=== PATIENT | male | born 1950 | race Caucasian/White ===

== ENCOUNTER → 2023-08-30 10:57 | Outpatient (REF) | payer OTHER, SELFPAY ==
[2023-08-30 12:11] LABS: % Basophils 0.2 % (0-2); % Eosinophils 0.9 % (0-6); % Immature Granulocytes 1.1 % (0-0.5); % Lymphocytes 34.7 % (20.5-51.1); % Monocytes 16.9 % (1.7-9.3); % Neutrophils 46.2 % (42.2-75.2); Absolute Immature Granulocytes 0.1 10^3/uL (0-0.05); Absolute Lymphocytes 1.5 10^3/uL (1.2-3.4); Absolute Monocytes 0.7 10^3/uL (0.1-0.6); Hematocrit 47.3 % (39.0-52.0); Hemoglobin 15.9 g/dL (13.0-18.0); Mean Corp Hgb Conc. 33.6 g/dL (33.0-37.0); Mean Corpuscular Hgb 28.1 pg (27.0-31.0); Mean Corpuscular Volume 83.7 fL (80.0-94.0); Nucleated Red Blood Cells % 0 % (-); Red Blood Cell Count 5.65 10^6/uL (4.70-6.10); Red Cell Dist. Width 14.7 % (11.5-14.5); White Blood Cell Count 4.4 10^3/uL (4.8-10.8)
[2023-08-30 12:54] LABS: ALT (SGPT) 28 U/L (0-50); AST (SGOT) 32 U/L (17-59); Albumin 4.6 g/dl (3.5-5.0); Alkaline Phosphatase 78 U/L (38-126); Blood Urea Nitrogen 13 mg/dl (9-20); Calcium 9.7 mg/dl (8.4-10.2); Carbon Dioxide 24 mmol/L (22-30); Chloride 102 mmol/L (98-107); Glucose 123 mg/dl (70-99); HDL Cholesterol 37 mg/dl; LDL Cholesterol, Calculated 63 mg/dl; Potassium 4.6 mmol/L (3.5-5.1); Sodium 137 mmol/L (135-145); Total Bilirubin 1.4 mg/dl (0.2-1.3); Total Cholesterol 136 mg/dl (50-199); Triglyceride 183 mg/dl (10-149); Very Low Density Lipoprotein 36 mg/dl (0-30)
[2023-08-30 12:55] LABS: eGFR > 60.00
[2023-08-30 13:17] LABS: Mean Platelet Volume 9.3 fL (7.4-10.4); Platelet Count 112 10^3/uL (130-400)
[2023-08-30 13:23] LABS: Glycohemoglobin (HgbA1c) 6.5 % (4.0-5.6)
== END ==
LOC: HWLAB 10:57
PROVIDERS: ATTENDING PHYSICIAN Family Medicine
DX: E11.69 Type 2 diabetes mellitus with other specified complication (principal); Z98.61 Coronary angioplasty status; E78.00 Pure hypercholesterolemia, unspecified; E66.9 Obesity, unspecified
CPT/HCPCS: 36415; 80053; 80061; 83036; 85025

== ENCOUNTER → 2023-11-14 11:23 | Outpatient (REF) | payer OTHER, SELFPAY ==
[2023-11-14 15:29] LABS: % Basophils 0.5 % (0-2); % Eosinophils 0.7 % (0-6); % Immature Granulocytes 0.9 % (0-0.5); % Monocytes 15.1 % (1.7-9.3); % Neutrophils 47.8 % (42.2-75.2); Absolute Lymphocytes 1.5 10^3/uL (1.2-3.4); Absolute Monocytes 0.6 10^3/uL (0.1-0.6); Hematocrit 48.1 % (39.0-52.0); Hemoglobin 16.3 g/dL (13.0-18.0); Mean Corp Hgb Conc. 33.9 g/dL (33.0-37.0); Mean Corpuscular Hgb 28.4 pg (27.0-31.0); Mean Corpuscular Volume 83.9 fL (80.0-94.0); Mean Platelet Volume 10.2 fL (7.4-10.4); Nucleated Red Blood Cells % 0 % (-); Platelet Count 110 10^3/uL (130-400); Red Blood Cell Count 5.73 10^6/uL (4.70-6.10); Red Cell Dist. Width 15.3 % (11.5-14.5); White Blood Cell Count 4.2 10^3/uL (4.8-10.8)
== END ==
LOC: HWLAB 11:23
PROVIDERS: ATTENDING PHYSICIAN Family Medicine
DX: N40.1 Benign prostatic hyperplasia with lower urinary tract symptoms (principal); D69.6 Thrombocytopenia, unspecified
CPT/HCPCS: 36415; 85025; G0103

== ENCOUNTER → 2024-03-08 09:22 | Outpatient (REF) | payer OTHER, SELFPAY ==
[2024-03-08 12:45] LABS: % Basophils 0.3 % (0-2); % Eosinophils 0.3 % (0-6); % Immature Granulocytes 1.3 % (0-0.5); % Lymphocytes 40.1 % (20.5-51.1); % Monocytes 13.8 % (1.7-9.3); % Neutrophils 44.2 % (42.2-75.2); ALT (SGPT) 27 U/L (0-50); AST (SGOT) 28 U/L (17-59); Absolute Immature Granulocytes 0.1 10^3/uL (0-0.05); Absolute Lymphocytes 1.6 10^3/uL (1.2-3.4); Absolute Monocytes 0.6 10^3/uL (0.1-0.6); Absolute Neutrophils 1.8 10^3/uL (1.4-6.5); Albumin 4.7 g/dl (3.5-5.0); Alkaline Phosphatase 67 U/L (38-126); Blood Urea Nitrogen 10 mg/dl (9-20); Calcium 9.5 mg/dl (8.4-10.2); Carbon Dioxide 24 mmol/L (22-30); Chloride 103 mmol/L (98-107); Glucose 142 mg/dl (70-99); HDL Cholesterol 39 mg/dl; Hematocrit 49.8 % (39.0-52.0); Hemoglobin 16.4 g/dL (13.0-18.0); LDL Cholesterol, Calculated 76 mg/dl; Mean Corp Hgb Conc. 32.9 g/dL (33.0-37.0); Mean Corpuscular Hgb 28.9 pg (27.0-31.0); Mean Corpuscular Volume 87.8 fL (80.0-94.0); Mean Platelet Volume 10.4 fL (7.4-10.4); Nucleated Red Blood Cells % 0 % (-); Platelet Count 101 10^3/uL (130-400); Potassium 4.2 mmol/L (3.5-5.1); Red Blood Cell Count 5.67 10^6/uL (4.70-6.10); Red Cell Dist. Width 14.9 % (11.5-14.5); Sodium 138 mmol/L (135-145); Total Bilirubin 1.2 mg/dl (0.2-1.3); Total Cholesterol 144 mg/dl (50-199); Triglyceride 147 mg/dl (10-149); Very Low Density Lipoprotein 29 mg/dl (0-30); eGFR > 60.00
== END ==
LOC: HWLAB 09:22
PROVIDERS: ATTENDING PHYSICIAN Family Medicine
DX: E11.69 Type 2 diabetes mellitus with other specified complication (principal); E78.00 Pure hypercholesterolemia, unspecified; Z00.00 Encounter for general adult medical examination without abnormal findings; D69.6 Thrombocytopenia, unspecified; E66.9 Obesity, unspecified; Z98.61 Coronary angioplasty status
CPT/HCPCS: 36415; 80053; 80061; 83036; 85025

== ENCOUNTER → 2024-07-08 09:19 | Outpatient (REF) | payer OTHER, SELFPAY ==
[2024-07-08 12:40] LABS: Glycohemoglobin (HgbA1c) 5.9 % (4.0-5.6)
[2024-07-08 13:00] LABS: Blood Urea Nitrogen 11 mg/dl (9-20); Calcium 9.6 mg/dl (8.4-10.2); Carbon Dioxide 23 mmol/L (22-30); Chloride 105 mmol/L (98-107); Glucose 141 mg/dl (70-99); Potassium 4.2 mmol/L (3.5-5.1); Sodium 139 mmol/L (135-145); eGFR > 60.00
[2024-07-08 13:51] LABS: Microalbumin, Random Urine 0.9 mg/dl (0.6-1.7)
== END ==
LOC: HWLAB 09:19
PROVIDERS: ATTENDING PHYSICIAN Family Medicine
DX: E11.69 Type 2 diabetes mellitus with other specified complication (principal)
CPT/HCPCS: 36415; 80048; 82043; 82570; 83036

== ENCOUNTER 2024-12-10 09:44 | Inpatient (IN) | payer OTHER, SELFPAY ==
[2024-12-10] VITALS (9 sets, daily range): BP systolic 108–139; BP diastolic 63–98; PULSE 92; O2SAT 94; BMI 33.3; BMI 32.8
[2024-12-10 05:07] LABS: Hematocrit 45.6 % (39.0-52.0); Hemoglobin 15.4 g/dL (13.0-18.0); Mean Corp Hgb Conc. 33.8 g/dL (33.0-37.0); Mean Corpuscular Volume 84.3 fL (80.0-94.0); Nucleated Red Blood Cells % 0 % (-); Platelet Count 83 10^3/uL (130-400); Red Cell Dist. Width 14.8 % (11.5-14.5)
[2024-12-10 05:11] LABS: COVID-19 Antigen Negative (Negative)
[2024-12-10 05:22] LABS: ALT (SGPT) 20 U/L (0-50); AST (SGOT) 21 U/L (17-59); Albumin 4.3 g/dl (3.5-5.0); Alkaline Phosphatase 62 U/L (38-126); Blood Urea Nitrogen 16 mg/dl (9-20); Calcium 9.3 mg/dl (8.4-10.2); Carbon Dioxide 20 mmol/L (22-30); Chloride 108 mmol/L (98-107); Estimated Creatinine Clearance 90 ml/min; Glucose 204 mg/dl (70-99); Potassium 4.4 mmol/L (3.5-5.1); Sodium 138 mmol/L (135-145); Total Protein 6.7 g/dl (6.3-8.2); eGFR > 60.00
[2024-12-10 05:23] LABS: Urine Character Clear (Clear)
[2024-12-10 05:45] LABS: Urine Red Blood Cell 0-2 /HPF (0-2); Urine Squamous Cell 0-2 /LPF (Few); Urine White Cell 0-2 /HPF (0-5)
--- NOTE | 2024-12-10 05:59 | ED.GENMED ---
History of Present Illness
<Dena Wilson PA-C - Last Filed: 12/10/24 11:21>
General
Chief Complaint: Weakness
Source: patient
Exam Limitations: none
Time Seen by Provider: 12/10/24 05:20
History of Present Illness
History of Present Illness:
74yoM with a history of coronary artery disease s/p PCI, hypertension, hyperlipidemia, and type 2 diabetes presenting via EMS for evaluation of generalized weakness. Patient received the COVID-vaccine around 1 PM yesterday afternoon. He started to
experience chills and shivering in the middle of the night. Patient had a fall around 3am this morning in which he slid out of bed. He was unable to get up after the fall and EMS had to be called. He estimates that he was on the ground for
approximately 15 minutes. He denies any LOC or headache. He sustained a mild abrasion to the L upper arm during the fall. He is febrile to 100.4 on arrival. He had chills after receiving his last COVID vaccine 2 years ago. He denies any chest
pain, shortness of breath, vomiting, diarrhea, abdominal pain, rash. No sick contacts or recent travel.
Phy Exam
<Dena Wilson PA-C - Last Filed: 12/10/24 11:21>
General Physical Exam
General Presentation: well appearing and no apparent distress
General Skin: warm and dry
General Habitus: normal and elderly
General Mental: alert
ENT Exam
ENT Exam: normocephalic
Eye Exam
Eye Exam: conjunctiva normal
Cardiovascular Exam
Cardiovascular Exam: regular rate/rhythm
Pulmonary Exam
Pulmonary Exam: lungs clear, no respiratory distress, no rales, no crackles, no rhonchi and no wheezing
Gastrointestinal Exam
Gastrointestinal Exam: non tender, soft and non distended
Neurological Exam
Neurological Exam: alert
[place] Coma Scale
Eye Opening: Spontaneous
Verbal Response: Oriented
Motor Response: Obeys Commands
GCS Total Score: 15
Skin Exam
Skin Exam: normal color, warm/dry and other (Abrasion noted to L upper arm)
Psychiatric Exam
Psychiatric Exam: normal mood/affect
<Leslye Meyers MD - Last Filed: 12/10/24 08:30>
[place] Coma Scale
GCS Total Score: 15
Course
<Dena Wilson PA-C - Last Filed: 12/10/24 11:21>
Orders/Labs/Results
Orders:
Orders
12/10/24 04:30
Electrocardiogram (*1) Urgent
Reason for Study: Other
Other Reason for Exam: Possible Sepsis
Cardiac Monitoring- Treatment ONCE
IV Insert/Care/Rem.- Treatment PRN
O2 Therapy [RESP] Urgent
Titrate/Wean O2 to maintain O2 sat greater than (%): 93
Special Instructions: TO MAINTAIN CONTINUOUS O2 SATS > OR = 93%
Pulse Ox/cont/shift [RESP] Urgent
Quantity: 1
Special Instructions: CONTINUOUS
12/10/24 04:31
EKG- Treatment ONCE
12/10/24 04:43
COVID-19 Antigen Urgent
Source: Nasal Swab
Complete Blood Count/With Diff Urgent
Comprehensive Metabolic Panel Urgent
Glycohemoglobin (HgbA1c) Urgent
Lactic Acid Q4H
Comment: ON ICE, CANCEL 2ND ORDER IF FIRST LACTIC ACID LEVEL <2
Urinalysis Reflex To Culture Urgent
Date Specimen was Collected: 12/10/24
Time Specimen was Collected: 04:31
Urine Microscopic Reflex Cult Urgent
Influenza A+B Rapid Molecular Urgent
LETICIA Source: Nasal Swab
Specimen Description:
12/10/24 04:46
Troponin I Urgent
12/10/24 06:13
CR Chest - 2 Views Urgent
Comment:
Reason For Exam: fever
12/10/24 06:41
Acetaminophen [Tylenol] 1,000 mg PO NOW STA
12/10/24 06:45
0.9% Sodium Chloride 1000 ml [Nss] 1,000 ml IV BOLUS
12/10/24 07:15
0.9% Sodium Chloride 1000 ml [Nss] 1,300 ml IV NOW STA
12/10/24 07:19
Blood Culture Q30M
LETICIA Source: Blood/Venous
Specimen Description:
12/10/24 07:23
CR Femur - Right Min 2 Vw Urgent
Comment:
Reason For Exam: R hip pain, fall
Pelvis, 1 or 2 Views CR [CR Pelvis - 1 Or 2 Views ] Urgent
Comment:
Reason For Exam: R hip pain
12/10/24 07:26
Piperacillin/Tazo 4.5 Gram [Zosyn] 4.5 gram in 100 ml IV NOW
12/10/24 08:10
Add On- LAB Routine
Tests Added?: HbA1C,B12
12/10/24 08:18
CT Head W/o Iv Contrast Urgent
Comment:
Reason For Exam: fall, head strike
12/10/24 08:51
Vancomycin [Vancocin] 2,000 mg 0.9% Sodium Chloride 500 ml [Nss] 500 ml IV NOW
12/10/24 08:59
Lactic Acid Q4H
Comment: ON ICE, CANCEL 2ND ORDER IF FIRST LACTIC ACID LEVEL <2
Blood Culture Q30M
LETICIA Source: Blood/Venous
Specimen Description:
12/10/24 09:10
Admit/Transfer Patient As Directed
Co-Sign Provider:
Level of Care: Inpatient admission
Assign to:: Medical/Surgical
Physician / Group: Hospital medicine
Diagnosis: SIRS
Patient Condition: Fair
Reason for Hospitalization: SIRS
Expected length of stay greater than two midnights?: No
ELOS- Estimated Length of Stay in days: 2
I certify the patient meets the requirements for IP care: Yes
Reason for Overnight Stay: Standard of Care
12/10/24 09:11
PRN Pain Medication Management As Directed
May give lesser potent ordered pain med per pt: Yes
preference::
Protocol:: Medication orders for pain may be administered in a
manner that supports deferring to patient preference
when the pt is:
- Requesting an ordered lesser potent pain medication.
Least to most potent pain medications are defined
as: acetaminophen < NSAID < tramadol < opioids
(morphine, oxycodone, hydromorphone).
- Requesting a lesser dose of the same medication IF
ORDERED.
- Requesting a less intrusive route of administration
if both routes are prescribed by the provider (PO <
IV).
12/10/24 09:16
Code Status As Directed
Resuscitation Status: Do not resuscitate
Reached after discussion with pt or family/Healthcare POA: Yes
Abnormal Lab Results
12/10/24
04:43
WBC 4.3 L 10^3/uL
(4.8-10.8)
RDW 14.8 H %
(11.5-14.5)
Plt Count 83 L 10^3/uL
(130-400)
Abs Immat Gran (auto) 0.1 H 10^3/uL
(0-0.05)
Absolute Lymphs (auto) 0.3 L 10^3/uL
(1.2-3.4)
Immature Gran % 1.9 H %
(0-0.5)
Neutrophils % 79.8 H %
(42.2-75.2)
Lymphocytes % 6.3 L %
(20.5-51.1)
Monocytes % 11.8 H %
(1.7-9.3)
Chloride 108 H mmol/L
(98-107)
Carbon Dioxide 20 L mmol/L
(22-30)
Glucose 204 H mg/dl
(70-99)
Hemoglobin A1c 5.8 H %
(4.0-5.6)
Lactic Acid 3.2 H mmol/L
(0.7-2.0)
Total Bilirubin 1.6 H mg/dl
(0.2-1.3)
Urine Ketones 1+ A
(Negative)
Ur Occult Blood Reflex 1+ A
(Negative)
Urine Glucose 4+ A
(Negative)
12/10/24 04:43
12/10/24 04:43
Vital Signs
Initial and Last Documented VS:
Initial Vital Signs
Temp Pulse Resp BP Pulse Ox
100.4 F H 104 20 135/77 92
12/10/24 04:24 12/10/24 04:24 12/10/24 04:24 12/10/24 04:24 12/10/24 04:24
Last Documented Vital Signs
Temp Pulse Resp BP Pulse Ox
99.5 F 90 14 121/78 92
12/10/24 06:50 12/10/24 09:00 12/10/24 09:00 12/10/24 07:00 12/10/24 09:00
<Leslye Meyers MD - Last Filed: 12/10/24 08:30>
Orders/Labs/Results
Orders:
Orders
12/10/24 04:30
Electrocardiogram (*1) Urgent
Reason for Study: Other
Other Reason for Exam: Possible Sepsis
Cardiac Monitoring- Treatment ONCE
IV Insert/Care/Rem.- Treatment PRN
O2 Therapy [RESP] Urgent
Titrate/Wean O2 to maintain O2 sat greater than (%): 93
Special Instructions: TO MAINTAIN CONTINUOUS O2 SATS > OR = 93%
Pulse Ox/cont/shift [RESP] Urgent
Quantity: 1
Special Instructions: CONTINUOUS
12/10/24 04:31
EKG- Treatment ONCE
12/10/24 04:43
COVID-19 Antigen Urgent
Source: Nasal Swab
Complete Blood Count/With Diff Urgent
Comprehensive Metabolic Panel Urgent
Glycohemoglobin (HgbA1c) Urgent
Lactic Acid Q4H
Comment: ON ICE, CANCEL 2ND ORDER IF FIRST LACTIC ACID LEVEL <2
Urinalysis Reflex To Culture Urgent
Date Specimen was Collected: 12/10/24
Time Specimen was Collected: 04:31
Urine Microscopic Reflex Cult Urgent
Influenza A+B Rapid Molecular Urgent
LETICIA Source: Nasal Swab
Specimen Description:
12/10/24 04:46
Troponin I Urgent
12/10/24 06:13
CR Chest - 2 Views Urgent
Comment:
Reason For Exam: fever
12/10/24 06:41
Acetaminophen [Tylenol] 1,000 mg PO NOW STA
12/10/24 06:45
0.9% Sodium Chloride 1000 ml [Nss] 1,000 ml IV BOLUS
12/10/24 07:15
0.9% Sodium Chloride 1000 ml [Nss] 1,300 ml IV NOW STA
12/10/24 07:19
Blood Culture Q30M
LETICIA Source: Blood/Venous
Specimen Description:
12/10/24 07:23
CR Femur - Right Min 2 Vw Urgent
Comment:
Reason For Exam: R hip pain, fall
Pelvis, 1 or 2 Views CR [CR Pelvis - 1 Or 2 Views ] Urgent
Comment:
Reason For Exam: R hip pain
12/10/24 07:26
Piperacillin/Tazo 4.5 Gram [Zosyn] 4.5 gram in 100 ml IV NOW
12/10/24 08:10
Add On- LAB Routine
Tests Added?: HbA1C,B12
12/10/24 08:18
CT Head W/o Iv Contrast Urgent
Comment:
Reason For Exam: fall, head strike
12/10/24 08:51
Vancomycin [Vancocin] 2,000 mg 0.9% Sodium Chloride 500 ml [Nss] 500 ml IV NOW
12/10/24 08:59
Lactic Acid Q4H
Comment: ON ICE, CANCEL 2ND ORDER IF FIRST LACTIC ACID LEVEL <2
Blood Culture Q30M
LETICIA Source: Blood/Venous
Specimen Description:
12/10/24 09:10
Admit/Transfer Patient As Directed
Co-Sign Provider:
Level of Care: Inpatient admission
Assign to:: Medical/Surgical
Physician / Group: Hospital medicine
Diagnosis: SIRS
Patient Condition: Fair
Reason for Hospitalization: SIRS
Expected length of stay greater than two midnights?: No
ELOS- Estimated Length of Stay in days: 2
I certify the patient meets the requirements for IP care: Yes
Reason for Overnight Stay: Standard of Care
12/10/24 09:11
PRN Pain Medication Management As Directed
May give lesser potent ordered pain med per pt: Yes
preference::
Protocol:: Medication orders for pain may be administered in a
manner that supports deferring to patient preference
when the pt is:
- Requesting an ordered lesser potent pain medication.
Least to most potent pain medications are defined
as: acetaminophen < NSAID < tramadol < opioids
(morphine, oxycodone, hydromorphone).
- Requesting a lesser dose of the same medication IF
ORDERED.
- Requesting a less intrusive route of administration
if both routes are prescribed by the provider (PO <
IV).
12/10/24 09:16
Code Status As Directed
Resuscitation Status: Do not resuscitate
Reached after discussion with pt or family/Healthcare POA: Yes
Abnormal Lab Results
12/10/24
04:43
WBC 4.3 L 10^3/uL
(4.8-10.8)
RDW 14.8 H %
(11.5-14.5)
Plt Count 83 L 10^3/uL
(130-400)
Abs Immat Gran (auto) 0.1 H 10^3/uL
(0-0.05)
Absolute Lymphs (auto) 0.3 L 10^3/uL
(1.2-3.4)
Immature Gran % 1.9 H %
(0-0.5)
Neutrophils % 79.8 H %
(42.2-75.2)
Lymphocytes % 6.3 L %
(20.5-51.1)
Monocytes % 11.8 H %
(1.7-9.3)
Chloride 108 H mmol/L
(98-107)
Carbon Dioxide 20 L mmol/L
(22-30)
Glucose 204 H mg/dl
(70-99)
Hemoglobin A1c 5.8 H %
(4.0-5.6)
Lactic Acid 3.2 H mmol/L
(0.7-2.0)
Total Bilirubin 1.6 H mg/dl
(0.2-1.3)
Urine Ketones 1+ A
(Negative)
Ur Occult Blood Reflex 1+ A
(Negative)
Urine Glucose 4+ A
(Negative)
12/10/24 04:43
12/10/24 04:43
Vital Signs
Initial and Last Documented VS:
Initial Vital Signs
Temp Pulse Resp BP Pulse Ox
100.4 F H 104 20 135/77 92
12/10/24 04:24 12/10/24 04:24 12/10/24 04:24 12/10/24 04:24 12/10/24 04:24
Last Documented Vital Signs
Temp Pulse Resp BP Pulse Ox
99.5 F 90 14 121/78 92
12/10/24 06:50 12/10/24 09:00 12/10/24 09:00 12/10/24 07:00 12/10/24 09:00
<Dena Wilson PA-C - Last Filed: 12/10/24 11:21>
MDM/Problems Addressed
Differential Diagnosis Includes:
74yoM here with weakness and chills that started overnight. Received a COVID vaccine yesterday afternoon. Had a fall out of bed and was unable to stand prompting EMS call. Patient is febrile to 100.4 on arrival. He is well appearing on exam and in
good spirits. Differential diagnosis includes but is not limited to: side effect of COVID vaccine, pneumonia, UTI, sepsis, viral illness, dehydration
Initial ED plan: Workup initiated by nursing staff. COVID/flu testing negative. UA bland without signs of infection. Lactate is elevated at 3.2. White count is 4.3 which is consistent with prior labs. EKG shows sinus tachycardia with
nonspecific ST changes. Will check chest x-ray, troponin, and blood cultures. Tylenol and IV fluid bolus for symptoms.
<Dnea Wilson PA-C - Last Filed: 12/10/24 11:21>
*Pulse Oximetry
SaO2: 94
Oxygen Mode of Delivery: Room air
Patient hypoxic: no
*EKG
Interpreted by ED Provider?: Yes
EKG Intrepretation Date: 12/10/24
Heart Rate: 104
Rate: tachycardiac
Rhythm: sinus
Isabel: left axis deviation
Interval: normal interval
QRS Pattern: normal QRS
Ischemia: non-specific ST changes
*Critical Care Note
Total Time (30-74mins, 75-104mins- exclusive of procedures): Not Applicable
<Dena Wilson PA-C - Last Filed: 12/10/24 11:21>
Update Note
Update Note:
Chest x-ray is clear. Upon reassessment, patient is now complaining of right hip pain. Pelvis/femur x-rays added as well as head CT which are negative for traumatic injuries. No source of infection identified although he is meeting SIRS criteria.
This all may be a reaction from the COVID-vaccine yesterday but will cover with broad-spectrum antibiotics pending culture results. IV vancomycin and Zosyn ordered. Patient admitted for further management.
ED Attending Note
<Dena Wilson PA-C - Last Filed: 12/10/24 11:21>
-
Portions of this chart may have been created with voice recognition software.� Occasional wrong word or��sound alike� substitutions may have occurred due to the inherent limitations of voice recognition software.
<Leslye Meyers MD - Last Filed: 12/10/24 08:30>
ED Attending Note
Patient seen and examined by attending physician: Yes
I performed the substantive portion of visit, reviewed & personally made and approve the management plan that is documented in note by myself or LAURA.: Yes
ED Attending Note:
74-year-old male who received the COVID-vaccine yesterday, very early this morning excellently rolled out of bed and unable to get up. Notes that he feels globally weak without focal weakness. He denies headache, photophobia, neck stiffness or
pain, chest pain, shortness of breath. He does have mild right hip discomfort since the fall. On exam, patient awake alert pleasant, no neck tenderness to palpation, heart regular rate and rhythm, lungs CTA, abdomen soft and nontender. Full range
of motion of right hip without associated deformity or tenderness to palpation, neurovascularly intact. Patient does fit SIRS criteria however no focal source identified, UA clear, chest x-ray clear, no meningismus. Patient will be admitted,
sepsis fluids, consideration for empiric antibiotics versus observe off antibiotics.
Discharge Plan
Departure
Patient Disposition: Admit
Date of Disposition: 12/10/24
Time of Disposition: 07:27
Presentation/result/management discussed w/ accepting MD/DO: Hospitalist
Discharge Problem:
SIRS (systemic inflammatory response syndrome), Accidental fall from bed, Ambulatory dysfunction
Interventions
Interventions:
*Risk Screen - Suicide Last Done: 12/10/24 04:38
*General Assessment Last Done: 12/10/24 04:38
*Neglect/Abuse Screening Last Done: 12/10/24 04:38
*ED- Fall Risk Assessment Last Done: 12/10/24 04:38
*ED COVID-19 Vaccine History Last Done: 12/10/24 04:38
*Nursing Disposition Last Done: 12/10/24 11:13
ED- Cardiac Assessment Last Done: 12/10/24 04:52
ED- Neurological Assessment Last Done: 12/10/24 04:52
ED- Pulmonary Assessment Last Done: 12/10/24 04:52
Discharge Date and Time
Discharge Date/Time: 12/10/24 11:14
[2024-12-10] MEDS: NSS 1000 IV ×2 (06:30→12:05)
[2024-12-10] MEDS: TYLENOL 1000 MG PO (06:44)
[2024-12-10 07:42] LABS: Troponin I < 0.012 ng/ml
[2024-12-10] MEDS: ZOSYN 100 IV (08:21)
[2024-12-10] MEDS: NSS 1300 ML IV (08:21)
--- NOTE | 2024-12-10 08:35 | HPS.HSE ---
Addendum entered and electronically signed by Keenan Edward MD 12/10/24 10:44:
Seen and examined the patient with the resident. Plan formulated together. Agree with the plan. See changes in my documentation
74-year-old with weakness. He received code booster vaccine 1 PM yesterday afternoon had some chills and shivering. He also had a fall around 3:00 this morning when he slid out of bed and was unable to get up and called EMS. Had a fever 100.4 in
the ER. Symptoms symptoms of chills after receiving cortisone vaccine 2 years ago.
Patient denies any rashes, abdominal pain nausea vomiting or diarrhea, dysuria, headache.
He has had some increasing pain in the right hip area
EKG-sinus tachycardia nonspecific T wave abnormality
Chest x-ray reviewed by me-No Pneumonia
X-ray of the pelvis-no acute changes. Mild degenerative changes of both hips
Head CT-no acute abnormality
On examination awake alert and oriented
Cardiovascular system S1-S2 appreciated
Chest clear to auscultation
Abdomen soft and nontender
Lower extremity no rashes or redness, no edema
No neck stiffness
# SIRS
Fever and chills, Tachycardia
Possibly secondary to the vaccine effect
But workup for other infections
Chest x-ray- NO acute changes of pneumonia
Urine analysis--not indicative of infection
LFTs stable except for mildly elevated bilirubin
Blood cultures drawn
Hold off on further antibiotics
# Pain in the right hip area-no fracture. PT OT. If pain persists will get a CT
# Mild lactic acidosis-follow with IV fluids
# Chronic bicytopenia-needs outpatient hematology evaluation
# DM-check hemoglobin A1c. Seems to be on Jardiance as outpatient, continue with Holli in house, Accu-Cheks and sliding scale coverage
# Hyperlipidemia-continue statin, Zetia
# Hypertension-continue doxazosin, ramipril
# DVT prophylaxis-Lovenox
# CODE STATUS-patient wants to be DNR.
Discussed with at bedside
Part of this note was created using voice recognition system. Occasional wrong word or��sound alike� substitutions may have inadvertently occurred due to the inherent limitations of voice recognition software. If noted kindly bring it to my
attention for correction.
Original Note:
Family Physician
-
Family Physician: Mahsa Herzog
Chief Complaint
-
Fatigue, chills, accidental fall.
History of Present Illness
74-year-old male with PMHx significant for CAD s/p PCI, hypertension, hyperlipidemia, type 2 diabetes mellitus (?) presents to the ER via EMS for evaluation of generalized weakness and fatigue. His baseline functional status was completely
independent, was able to walk a mile without shortness of breath and was able to do push-ups until yesterday afternoon. He received COVID-19 booster in the afternoon yesterday around 1 pm, he started experiencing weakness (unable to do push-ups in
the evening), and started experiencing chills by 8:30 PM. In the night around 3 AM, when his asked to roll a bit patient rolled out of bed and was stuck in the space between the cabinet and the bed. He was unable to get himself up, and EMS
was called for help (total duration on floor-for 15 minutes). Upon arrival to the ER, he was found to be febrile, tachycardic, tachypneic with normal oxygen saturations. He denies having headaches, neck pain, nausea, vomiting, blurring of vision,
abdominal pain, chest pain, dyspnea at rest or on exertion, dysuria, change in bowel habits or blood in the stool. He had no history of tick bites, not been in ch lately, no sick contacts, and has not traveled outside of [place].
He also reports to have right hip pain that worsened after the fall. His hip x-ray for now looks within normal limits.
Reports to have a similar episode of chills and generalized weakness after COVID-19 vaccine about 2 years ago.
In the ER he received 2 L of NS, vancomycin and Zosyn along with extra-strength Tylenol.
Medical History
Past Medical History
Past Medical History: Reports CAD, HTN, Hypercholesterolemia and NIDDM
Additional Past Medical History:
BPH with LUTS.
Past Surgical History: Reports None
Additional Past Surgical History:
Resection of multiple tubular adenomas.
Social History
Tobacco: Non-smoker
Alcohol: Occasional
Drug: None
Personal:
Living: With Family
Employment: Retired
Family History
Family History: Not pertinent
Allergies / Home Medications
Allergies reflects when Allergies were last updated in [facility].
Home Medications with original date entered in [facility]
Allergy/Medication List:
Allergies
Allergy/AdvReac Type Severity Reaction Status Date / Time
No Known Allergies Allergy Unverified 12/10/24 06:37
Home Medications
atorvastatin 20 mg tablet 20 mg PO HS 12/10/24
doxazosin 1 mg tablet 1 mg PO BID 12/10/24
empagliflozin 25 mg tablet (Jardiance) 25 mg PO DAILY 12/10/24
ezetimibe 10 mg tablet 10 mg PO DAILY 12/10/24
ramipril 10 mg tablet 10 mg PO BID 12/10/24
Aspirin 81 mg tablet 1 tablet p.o. daily
Review of Systems
-
History Source: Patient
Constitutional: Reports Fever, Fatigue and Chills
EENT: Reports No Symptoms
Respiratory: Reports No Symptoms
Cardiac: Reports No Symptoms
Abdomen/GI: Reports No Symptoms
: Reports No Symptoms
Musculoskeletal: Reports No Symptoms
Skin: Reports No Symptoms
Neurological: Reports Weakness (Generalized)
Endocrine: Reports No Symptoms
Hematologic/Lymphatic: Reports Bruising (Attributed to aspirin (for last 2 years per patient))
Psych: Reports No Symptoms
Physical Exam
Vital Signs
Vital Signs
Temp Pulse Resp BP Pulse Ox
99.5 F 97 17 128/79 94
12/10/24 06:50 12/10/24 06:00 12/10/24 06:00 12/10/24 06:00 12/10/24 06:00
Physical Exam
General: No Apparent Distress, Comfortable and Obese
HEENT: Anicteric, Moist mucous membranes and [place] Conjunctivae
Respiratory: Clear; No Wheezes, Rales, Rhonchi, Crackles or Accessory Resp Muscle Use
Cardiac: S1/S2 and Regular Rhythm; No Murmur, Rub or Gallop
GI: Soft, Non Tender, Non Distended and Normal Bowel Sounds
Genito-urinary: Deferred by me
Musculoskeletal: No Cyanosis and No Edema
Skin: Warm and Other (bruises)
Neuro: AO x 3, No Motor Deficits, DTR's Intact & Symmetrical and Tremors (in hands)
Psych: Calm
Laboratory Results
-
12/10/24 04:43
12/10/24 04:43
Laboratory Results
Lactic Acid 3.2 mmol/L (0.7-2.0) H 12/10/24 04:43
Total Bilirubin 1.6 mg/dl (0.2-1.3) H 12/10/24 04:43
AST 21 U/L (17-59) 12/10/24 04:43
ALT 20 U/L (0-50) 12/10/24 04:43
Alkaline Phosphatase 62 U/L (38-126) 12/10/24 04:43
Troponin I < 0.012 ng/ml 12/10/24 04:46
Data Reviewed
-
Diagnostic Radiology: Image Personally Visualized and interpreted, Report Reviewed by me, Discussed with Physician and Discussed with Patient
Medical Tests (Nuc Med, Echo, EKG etc): Image Personally Visualized and interpreted, Report Reviewed by me and Discussed with Patient
Lab Data: Labs Reviewed by me, Discussed with Physician and Discussed with Patient
Impression/Plan
-
IMPRESSION: 74-year-old male with PMHx significant for CAD s/p PCI, HTN, HLD, BPH with LUTS and type 2 diabetes is admitted to the hospital for a diagnosis and management of systemic inflammatory response syndrome.
PLAN:
SIRS criteria met, less likely sepsis.
Likely secondary to COVID-vaccine, versus sepsis.
Fever-100.4, tachycardia and tachypnea upon admission.
No leukocytosis, elevated lactate levels.
Urine analysis-no evidence for UTI, chest x-ray-no evidence for pneumonia.
Blood cultures x 2 pending.
Continue IV fluids, and hold off on antibiotics for now.
Continue Tylenol for fever/pain.
Metabolic acidosis-
Lactic acidosis anion gap-10.
Unclear etiology at this time.
Continue to monitor electrolytes.
Leukopenia, thrombocytopenia-
Chronic, present at least for 1 year.
Left shift and leukopenia is new.
Essential hypertension-
Continue ramipril 10 mg twice daily.
CAD s/p PCI-
Continue aspirin.
Hyperlipidemia-
Continue Lipitor and ezetimibe.
Type 2 diabetes mellitus-
Elevated blood sugars in the a.m. today, at 205.
On empagliflozin at home, obtain HbA1c in the a.m.
Carb controlled diabetic diet.
Accu-Cheks.
Hip pain, generalized fatigue-
Obtain PT, OT consult.
Right hip x-ray no evidence for fracture.
If hip pain worsens, will obtain a CT in the a.m. tomorrow.
DVT prophylaxis-
Lovenox 40 twice daily
CODE STATUS-
DNR.
[2024-12-10] MEDS: VANCOCIN 540 MG IV (09:26)
[2024-12-10 09:59] LABS: Glycohemoglobin (HgbA1c) 5.8 % (4.0-5.6)
--- NOTE | 2024-12-10 10:10 | CM ---
CM reviewed chart and met with pt bedside in ED. Lives with his , 1 story home, 2 [address].
Independent in ADLs, personal care and ambulation at baseline. Has RW but does not use it.
Confirms prescription coverage.
No hx VN or SNf
PCP: Mahsa Herzog
Pharmacy: [facility]
Anticipate discharge home, CM will continue to follow for any discharge planning needs.
--- NOTE | 2024-12-10 11:30 | TRANSFER ---
pt arrives from ER requiring pipe puller into hospital bed. pt aaox3 with stable vitals. spouse present. admission and assessment being completed. pt with no pressing issues at the moment. plan of care continues to be followed.
[2024-12-10] MEDS: ZETIA 10 MG PO (12:05)
[2024-12-10] MEDS: ASPIR LOW (ENTERIC COATED) 81 MG PO (12:05)
[2024-12-10] MEDS: FARXIGA 10 MG PO (12:05)
[2024-12-10 12:15] LABS: Glucose - Point of Care 96 mg/dl (70-99)
[2024-12-10 16:40] LABS: Glucose - Point of Care 137 mg/dl (70-99)
[2024-12-10] MEDS: LOVENOX 40 MG SC (17:00)
[2024-12-10] MEDS: CARDURA 1 MG PO (20:13)
[2024-12-10] MEDS: ALTACE 10 MG PO (20:13)
[2024-12-10] MEDS: REFRESH EYE DROPS (PF) 1 DROPS BOTH EYES (21:29)
[2024-12-10] MEDS: LIPITOR 20 MG PO (21:29)
[2024-12-10 21:37] LABS: Glucose - Point of Care 107 mg/dl (70-99)
[2024-12-11] MEDS: NSS 1000 IV ×2 (00:54→13:52)
[2024-12-11 06:00] VITALS: BMI 33.3
[2024-12-11 07:20] VITALS: BP 132/79
[2024-12-11 07:53] LABS: Glucose - Point of Care 117 mg/dl (70-99)
[2024-12-11] MEDS: ALTACE 10 MG PO ×2 (08:49→20:32)
[2024-12-11] MEDS: ZETIA 10 MG PO (08:49)
[2024-12-11] MEDS: CARDURA 1 MG PO ×2 (08:50→20:33)
[2024-12-11] MEDS: ASPIR LOW (ENTERIC COATED) 81 MG PO (08:51)
[2024-12-11] MEDS: FARXIGA 10 MG PO (08:51)
[2024-12-11] MEDS: REFRESH EYE DROPS (PF) 1 DROPS BOTH EYES ×2 (08:51→20:32)
[2024-12-11 09:05] LABS: Hematocrit 39.8 % (39.0-52.0); Hemoglobin 13.4 g/dL (13.0-18.0); Mean Corp Hgb Conc. 33.7 g/dL (33.0-37.0); Mean Corpuscular Volume 84.0 fL (80.0-94.0); Platelet Count 68 10^3/uL (130-400); Red Cell Dist. Width 15.0 % (11.5-14.5)
[2024-12-11 09:41] VITALS: BP 94/46; PULSE 93
[2024-12-11 10:18] LABS: ALT (SGPT) 21 U/L (0-50); AST (SGOT) 27 U/L (17-59); Albumin 3.6 g/dl (3.5-5.0); Alkaline Phosphatase 51 U/L (38-126); Blood Urea Nitrogen 12 mg/dl (9-20); Calcium 8.8 mg/dl (8.4-10.2); Carbon Dioxide 22 mmol/L (22-30); Chloride 109 mmol/L (98-107); Estimated Creatinine Clearance 101 ml/min; Glucose 89 mg/dl (70-99); Potassium 3.6 mmol/L (3.5-5.1); Sodium 138 mmol/L (135-145); Total Protein 5.9 g/dl (6.3-8.2); eGFR > 60.00
--- NOTE | 2024-12-11 11:33 | W.PN.HOSP.TC ---
Today's Communication/Plan
-
stop IVF
CBC in am
Assessment / Plan
Assessment / Plan
74-year-old with weakness. He received code booster vaccine 1 PM yesterday afternoon had some chills and shivering. He also had a fall around 3:00 this morning when he slid out of bed and was unable to get up and called EMS. Had a fever 100.4 in
the ER. Symptoms symptoms of chills after receiving cortisone vaccine 2 years ago.
Patient denies any rashes, abdominal pain nausea vomiting or diarrhea, dysuria, headache.
He has had some increasing pain in the right hip area
EKG-sinus tachycardia nonspecific T wave abnormality
Chest x-ray reviewed by me-No Pneumonia
X-ray of the pelvis-no acute changes. Mild degenerative changes of both hips
Head CT-no acute abnormality
On examination awake alert and oriented
Cardiovascular system S1-S2 appreciated
Chest clear to auscultation
Abdomen soft and nontender
Lower extremity no rashes or redness, no edema
No neck stiffness
# SIRS
Fever and chills, Tachycardia
Possibly secondary to the vaccine effect
But workup for other infections
Chest x-ray- NO acute changes of pneumonia
Urine analysis--not indicative of infection
LFTs stable except for mildly elevated bilirubin
Blood cultures drawn
Hold off on further antibiotics
# Pain in the right hip area-no fracture. PT OT. If pain persists will get a CT. Patient states that after 7 steps it gets better and no pain
# Mild lactic acidosis-resolved
# Chronic bicytopenia-needs outpatient hematology evaluation
# DM-hemoglobin A1c 5.8- seems to be on Jardiance as outpatient, continue with Farxiga in house, Accu-Cheks and sliding scale coverage
# Hyperlipidemia-continue statin, Zetia
# Hypertension-continue doxazosin, ramipril
# Suspected cognitive dysfunction per evaluation by Occupational Therapy. Formal evaluation as outpatient. Discussed with daughter at bedside
# DVT prophylaxis-Lovenox
# CODE STATUS-patient wants to be DNR.
Discussed with and daughter at bedside
Discussed with case management
OT/PT recommending SNF
Anticipated Discharge: Within 24 hours
Subjective/Interval History
-
Date of Service: December 11, 2024
Objective Data
-
Labs:
Laboratory Results
12/11/24
07:29
WBC 2.9 L
Hgb 13.4
Hct 39.8
Plt Count 68 L
Sodium 138
Potassium 3.6
Chloride 109 H
Carbon Dioxide 22
BUN 12
Creatinine 0.8
Glucose 89
Calcium 8.8
Total Bilirubin 2.0 H
AST 27
ALT 21
Alkaline Phosphatase 51
Vital Signs:
Vital Signs
Temp Pulse Resp BP Pulse Ox
98.5 F 73 20 132/79 95
12/11/24 07:20 12/11/24 07:20 12/11/24 07:20 12/11/24 07:20 12/11/24 07:20
I&O
12/10/24 12/11/24 12/12/24
06:59 06:59 06:59
Intake Total 2029
Output Total 1075 / 1075
Balance 955 / 955
--- NOTE | 2024-12-11 12:25 | CM ---
Chart reviewed. Therapy rec SNF at d/c. Per hospitalist, steven d/c tomorrow
Spoke w/ patient, spouse and daughter bedside. Daughter asked about [facility], CM shared that therapy did not recommended acute rehab and patient doesn't have an acute diagnosis. Daughter understood this, shared [facility] would be preferred as well
as [facility]. Medicare SNF list provided in case additional facilities need to be explored.
Referrals completed in [facility]
Patient will require prior auth
Plan: SNF
[2024-12-11 12:36] LABS: Glucose - Point of Care 102 mg/dl (70-99)
[2024-12-11 15:15] VITALS: BP 103/61
[2024-12-11 17:01] LABS: Glucose - Point of Care 126 mg/dl (70-99)
[2024-12-11] MEDS: LOVENOX 40 MG SC (18:51)
[2024-12-11] MEDS: LIPITOR 20 MG PO (21:03)
[2024-12-11 21:04] LABS: Glucose - Point of Care 126 mg/dl (70-99)
[2024-12-11 23:00] VITALS: BP 132/71
[2024-12-12 05:30] VITALS: BMI 32.8
[2024-12-12 07:34] LABS: Hematocrit 39.8 % (39.0-52.0); Hemoglobin 13.7 g/dL (13.0-18.0); Mean Corp Hgb Conc. 34.4 g/dL (33.0-37.0); Mean Corpuscular Volume 84.5 fL (80.0-94.0); Platelet Count 64 10^3/uL (130-400); Red Cell Dist. Width 14.9 % (11.5-14.5)
[2024-12-12 07:53] VITALS: BP 150/80
[2024-12-12 08:04] LABS: Glucose - Point of Care 108 mg/dl (70-99)
[2024-12-12 08:04] LABS: Absolute Neutrophils -Man Diff 1.5 10^3/uL (1.4-6.5); Platelets Checked Yes
[2024-12-12 08:05] LABS: Normal RBC Morphology Yes; Total Cells Counted 100
[2024-12-12 09:27] VITALS: BP 151/86; PULSE 70
[2024-12-12] MEDS: FARXIGA 10 MG PO (10:16)
[2024-12-12] MEDS: ALTACE 10 MG PO ×2 (10:16→20:20)
[2024-12-12] MEDS: CARDURA 1 MG PO ×2 (10:16→20:20)
[2024-12-12] MEDS: ZETIA 10 MG PO (10:18)
[2024-12-12] MEDS: ASPIR LOW (ENTERIC COATED) 81 MG PO (10:18)
[2024-12-12] MEDS: REFRESH EYE DROPS (PF) 1 DROPS BOTH EYES ×2 (10:18→20:20)
--- NOTE | 2024-12-12 10:28 | CON.ONC ---
Consultation
-
Date Consultation Requested: 12/12/24
Date Consultation Performed: 12/12/24
Requesting Provider: Dr. Keenan Edward
Performing Provider: Dr. Jorge Jensen
Reason for Consultation: leukopenia and thrombocytopenia
Impression
Impression
SIRS
leukopenia, thrombocytopenia -Leukopenia worsening since October 2024, thrombocytopenia worsening since August 2023. CBC differential with leukopenia, normal ANC
Plan
Plan
follow cultures
No objection to antiplatelet or anticoagulation in the absence of bleeding with platelet count >50,000
check DIC panel, B12, folate, SPEP, FLC, MIRNA, lupus anticoagulant
check ab US
OP follow up will be arranged upon dishcarge to consider further evaluation with bone marrow biopsy
Patient History
History of Present Illness
74yo M who presented after a mechanical fall at home. He rolled out of bed onto the floor and could not get himself back up requiring him to call EMS. He received his COVID booster 12/09/2024 and since has developed chills, low grade temp with Tmax
100.4F, general weakness, and left deltoid soreness at the site of injection. He did not hit his head and was lying on the floor for approximately 15min. He has chronic right hip pain that is slightly worse after his fall. His CXR showed bibasilar
opacities, most consistent with atelectasis/scarring. Moderate elevation of the right hemidiaphragm. Right femur and pelvic xrays showed no acute radiographic abnormalities appreciated. Mild degenerative changes of both hips. His CT head showed no
acute intracranial abnormality. His WBC on admission was 4.3, ANC 3.4, ALC 300, Hgb 15.4, platelet count 83,000, Tbili 1.6 with normal AST/ALT/Alk phos, BuN/creatine 16/0.9. Bcx are NTD. On admission he received IVF, a dose of IV Vanco and a dose of
Zosyn.
Clinically, he denies SOB at rest, chest pain, palpitations, n/v/d/c or abdominal pain. Last colonoscopy 2018 with benign polyps. He denies any unintentional weight loss, changes in appetite, or changes in bowel patterns. He denies any prior
hematology work up or evaluation.
Afebrile, no hypoxia or hypotension
Past-Medical/Surgical History
PMH CAD, HTN, HLD, DM2, BPH
PSH PCI, hemorrhoidectomy
Social non smoker, deneis significant ETOH, denies recreational drugs. Lives with , retired.
Family: denies malignancy
Patient Medication
�Medication �Instructions �Recorded �Confirmed �Last Taken �Type
Refresh Tears 1 drp BOTH EYES BID Eye Condition 12/10/24 12/11/24 12/09/24 20:00 History
aspirin 81 mg tablet 81 mg PO DAILY Blood Clot 12/10/24 12/10/24 12/09/24 History
Prevention/Tx
atorvastatin 20 mg tablet 20 mg PO HS High Cholesterol 12/10/24 12/10/24 12/09/24 History
doxazosin 1 mg tablet 1 mg PO BID Urinary Issue 12/10/24 12/10/24 12/09/24 History
empagliflozin 25 mg tablet 25 mg PO DAILY Diabetes 12/10/24 12/10/24 12/09/24 History
(Jardiance)
ezetimibe 10 mg tablet 10 mg PO DAILY High Cholesterol 12/10/24 12/10/24 12/09/24 History
multivitamin 1 tab PO DAILY Supplement 12/10/24 12/10/24 12/09/24 History
omega 9-pjj-qhj-fish oil 60 mg-90 1 cap PO DAILY Supplement 12/10/24 12/10/24 12/09/24 History
mg-500 mg capsule (Fish Oil)
ramipril 10 mg capsule 10 mg PO BID Blood Pressure 12/10/24 12/10/24 12/09/24 History
Active Medications
Generic Name Dose Route Start Last Admin
Trade Name Freq PRN Reason Stop Dose Admin
Artificial Tears 1 drops 12/10/24 22:00 12/12/24 10:18
Artificial Tears Pf (Refresh) 10 Drop Droperette BOTH EYES 01/07/25 21:59 1 drops
BID CHRIS Administration
Aspirin 81 mg 12/10/24 12:00 12/12/24 10:18
Aspirin 81 Mg (Enteric Coated) Tablet PO 01/07/25 11:59 81 mg
DAILY CHRIS Administration
Atorvastatin Calcium 20 mg 12/10/24 22:00 12/11/24 21:03
Atorvastatin (Lipitor) 20 Mg Tablet PO 01/07/25 21:59 20 mg
HS CHRIS Administration
Dapagliflozin 10 mg 12/10/24 12:00 12/12/24 10:16
Dapagliflozin (Farxiga) 10 Mg Tablet PO 01/07/25 11:59 10 mg
DAILY CHRIS Administration
Dextrose 12.5 grams 12/10/24 11:19
Dextrose 50% (0.5 Grams/Ml) 50 Ml Syringe IV 01/07/25 11:18
[id number] PRN
hypoglycemia
Protocol
Doxazosin Mesylate 1 mg 12/10/24 20:00 12/12/24 10:16
Doxazosin 1 Mg Tablet PO 01/07/25 19:59 1 mg
BID CHRIS Administration
Ezetimibe 10 mg 12/10/24 11:19 12/12/24 10:18
Ezetimibe (Zetia) 10 Mg Tablet PO 01/07/25 11:18 10 mg
DAILY CHIRS Administration
Enoxaparin Sodium 40 mg 12/10/24 18:00 12/11/24 18:51
Enoxaparin Sodium 40 Mg/0.4 Ml Syringe SC 01/07/25 17:59 40 mg
QPM CHRIS Administration
Glucagon 1 mg 12/10/24 11:19
Glucagon 1 Mg Vial IM 01/07/25 11:18
PRN PRN
hypoglycemia
Protocol
Insulin Aspart 0 units 12/10/24 11:30 12/12/24 10:12
Insulin Aspart Low Resistance 300 Units/3 Ml Pen.Injctr SC 01/07/25 11:29 Not Given
AC CHRIS
Protocol
Ramipril 10 mg 12/10/24 20:00 12/12/24 10:16
Ramipril (Altace) 10 Mg Capsule PO 01/07/25 19:59 10 mg
BID CHRIS Administration
Sodium Chloride 0 flush 12/10/24 22:00
Sodium Chloride 0.9% (Flush) Syringe IV 01/07/25 21:59
PER PROTOCOL CHRIS
Review of Systems
-
ROS is notable for HPI, otherwise negative
Physical Exam
-
General: No Apparent Distress
HEENT: Moist Mucous Membranes; Negative Jaundice
Pulmonary: Clear
GI: Soft
Extremities: Pulses Present; Negative Edema
Skin: Warm
Psych: Calm
Labs
Lab Results
WBC 2.9 10^3/uL (4.8-10.8) L 12/12/24 06:47
RBC 4.71 10^6/uL (4.70-6.10) 12/12/24 06:47
Hgb 13.7 g/dL (13.0-18.0) 12/12/24 06:47
Hct 39.8 % (39.0-52.0) 12/12/24 06:47
MCV 84.5 fL (80.0-94.0) 12/12/24 06:47
MCH 29.1 pg (27.0-31.0) 12/12/24 06:47
MCHC 34.4 g/dL (33.0-37.0) 12/12/24 06:47
RDW 14.9 % (11.5-14.5) H 12/12/24 06:47
Plt Count 64 10^3/uL (130-400) L 12/12/24 06:47
MPV 10.0 fL (7.4-10.4) 12/12/24 06:47
Abs Immat Gran (auto) 0.1 10^3/uL (0-0.05) H 12/10/24 04:43
Absolute Neuts (auto) 3.4 10^3/uL (1.4-6.5) 12/10/24 04:43
Absolute Lymphs (auto) 0.3 10^3/uL (1.2-3.4) L 12/10/24 04:43
Absolute Monos (auto) 0.5 10^3/uL (0.1-0.6) 12/10/24 04:43
Absolute Eos (auto) 0.0 10^3/uL (0-0.7) 12/10/24 04:43
Absolute Basos (auto) 0.0 10^3/uL (0-0.2) 12/10/24 04:43
Immature Gran % 1.9 % (0-0.5) H 12/10/24 04:43
Neutrophils % 79.8 % (42.2-75.2) H 12/10/24 04:43
Lymphocytes % 6.3 % (20.5-51.1) L 12/10/24 04:43
Monocytes % 11.8 % (1.7-9.3) H 12/10/24 04:43
Eosinophils % 0.2 % (0-6) 12/10/24 04:43
Basophils % 0.0 % (0-2) 12/10/24 04:43
Creatinine 0.8 mg/dL (0.7-1.3) 12/11/24 07:29
Vital Signs
Vital Signs
Temp Pulse Resp BP Pulse Ox
98.3 F 52 16 150/80 96
12/12/24 07:53 12/12/24 07:53 12/12/24 07:53 12/12/24 07:53 12/12/24 07:53
[2024-12-12 12:02] LABS: Glucose - Point of Care 112 mg/dl (70-99)
--- NOTE | 2024-12-12 13:50 | W.PN.HOSP.TC ---
Today's Communication/Plan
-
Ultrasound of the abdomen
Discharge to rehab tomorrow
Assessment / Plan
Assessment / Plan
74-year-old with weakness. He received code booster vaccine 1 PM yesterday afternoon had some chills and shivering. He also had a fall around 3:00 this morning when he slid out of bed and was unable to get up and called EMS. Had a fever 100.4 in
the ER. Symptoms symptoms of chills after receiving cortisone vaccine 2 years ago.
Patient denies any rashes, abdominal pain nausea vomiting or diarrhea, dysuria, headache.
He has had some increasing pain in the right hip area
EKG-sinus tachycardia nonspecific T wave abnormality
Chest x-ray reviewed by me-No Pneumonia
X-ray of the pelvis-no acute changes. Mild degenerative changes of both hips
Head CT-no acute abnormality
On examination awake alert and oriented
Cardiovascular system S1-S2 appreciated
Chest clear to auscultation
Abdomen soft and nontender
Lower extremity no rashes or redness, no edema
No neck stiffness
# SIRS
Fever and chills, Tachycardia
Possibly secondary to the vaccine effect
But workup for other infections
Chest x-ray- NO acute changes of pneumonia
Urine analysis--not indicative of infection
LFTs stable except for mildly elevated bilirubin
Blood cultures neg
No antibiotics
# Pain in the right hip area-no fracture. PT OT.
# Mild lactic acidosis-resolved
# Chronic bicytopenia-Heme eval appreciated. USS abd, MIRNA, lupus anticoagulant, fibrinogen, PT/INR/PTT, SPEP ordered
# DM-hemoglobin A1c 5.8- seems to be on Jardiance as outpatient, continue with Farxiga in house, Accu-Cheks and sliding scale coverage
# Hyperlipidemia-continue statin, Zetia
# Hypertension-continue doxazosin, ramipril
# Suspected cognitive dysfunction per evaluation by Occupational Therapy. Formal evaluation as outpatient. Discussed with daughter at bedside
# DVT prophylaxis-Lovenox
# CODE STATUS-patient wants to be DNR.
Discussed with at bedside
Discussed with case management
OT/PT recommending SNF
Anticipated Discharge: Within 24 hours
Subjective/Interval History
-
Date of Service: December 12, 2024
Objective Data
-
Labs:
Laboratory Results
12/12/24
06:47
WBC 2.9 L
Hgb 13.7
Hct 39.8
Plt Count 64 L
Vital Signs:
Vital Signs
Temp Pulse Resp BP Pulse Ox
98.3 F 52 16 150/80 96
12/12/24 07:53 12/12/24 07:53 12/12/24 07:53 12/12/24 07:53 12/12/24 07:53
I&O
12/11/24 12/12/24 12/13/24
06:59 06:59 06:59
Intake Total 2029 / 2029 420 / 420
Output Total 1075 / 1075 1550 / 1550
Balance 955 / 955 -1130 / -1130
--- NOTE | 2024-12-12 14:07 | CM ---
CM reviewed chart, patient seen bedside with , discussed [facility] able to accept patient for tomorrow.
Patient and agreeable.
[facility]
Dr. Bright Neri: [phone]
CM will continue to follow for all discharge planning needs.
Plan; [facility] SNF, will require auth, likely d.c tomorrow
[2024-12-12 16:14] VITALS: BP 113/70
[2024-12-12 16:28] LABS: Folate 8.6 ng/ml (2.76-20); Vitamin B12 389 pg/ml (239-931)
[2024-12-12 17:31] LABS: Glucose - Point of Care 124 mg/dl (70-99)
[2024-12-12] MEDS: LOVENOX 40 MG SC (18:08)
[2024-12-12 21:22] LABS: Glucose - Point of Care 128 mg/dl (70-99)
[2024-12-12 23:05] VITALS: BP 139/67
[2024-12-12] MEDS: LIPITOR 20 MG PO (23:09)
[2024-12-13 05:31] VITALS: BMI 32.3
[2024-12-13 06:02] LABS: Glucose - Point of Care 104 mg/dl (70-99)
[2024-12-13 08:20] VITALS: BP 150/75
[2024-12-13 08:57] LABS: INR 1.09; PT 14.4 Sec (11.4-14.6)
[2024-12-13 08:58] LABS: APTT 31.1 Sec (23.4-35.0)
[2024-12-13] MEDS: ASPIR LOW (ENTERIC COATED) 81 MG PO (09:10)
[2024-12-13] MEDS: ZETIA 10 MG PO (09:10)
[2024-12-13] MEDS: FARXIGA 10 MG PO (09:10)
[2024-12-13] MEDS: ALTACE 10 MG PO (09:10)
[2024-12-13] MEDS: CARDURA 1 MG PO (09:11)
[2024-12-13] MEDS: REFRESH EYE DROPS (PF) 1 DROPS BOTH EYES (09:11)
[2024-12-13 09:20] LABS: Hematocrit 42.1 % (39.0-52.0); Hemoglobin 14.1 g/dL (13.0-18.0); Mean Corp Hgb Conc. 33.5 g/dL (33.0-37.0); Mean Corpuscular Volume 83.5 fL (80.0-94.0); Platelet Count 71 10^3/uL (130-400); Red Cell Dist. Width 15.2 % (11.5-14.5)
[2024-12-13 09:30] LABS: Fibrinogen 480 MG/DL (199-459)
[2024-12-13 09:59] LABS: Absolute Neutrophils -Man Diff 1.7 10^3/uL (1.4-6.5); Normal RBC Morphology Yes; Platelets Checked Yes; Total Cells Counted 100
--- NOTE | 2024-12-13 11:39 | CM ---
Addendum entered by Nasreen Guillaume 12/13/24 16:05:
CM spoke with Dr. Luo- [employer]- appeal for SNF denied. Patient and seen bedside, plan to d/c home with [facility]. IMM verbally reviewed, declined need for copy, placed in chart.
Plan; home with [facility]
Addendum entered by Nasreen Guillaume 12/13/24 15:16:
CM waited on hold with insurance over 1 hr- spoke to physician relations representative through [employer]- auth pending to [employer] for approval - pending ref #[id number], update to [facility]. Patient and seen bedside, aware auth being sent to Medical
Director, patient agreeable to wait until end of the day to see if SNF approved, otherwise will d/c home today with [facility], referral to liaison.
Original Note:
CM reviewed chart, patient seen bedside with , spoke with daughter, Madisyn, on phone ([phone]), discussed patient did very well in PT, ambulated 120 feet, likely will not get approved for SNF. Per daughter, patient has four steps into home,
asking if therapy is able to work with patient for steps to see how patient does. TT to therapy, will see patient.
CM reviewed with liaison from [facility].
Discussed plan B referral to [facility] if patient not approved for SNF.
CM will continue to follow for all d/c planning needs.
Plan; will submit auth for [facility], if denied, plan for home with [facility]
[2024-12-13 12:28] VITALS: BP 96/56; PULSE 63; O2SAT 95
[2024-12-13 12:52] LABS: Glucose - Point of Care 144 mg/dl (70-99)
--- NOTE | 2024-12-13 13:11 | W.PN.HOSP.TC ---
Addendum entered and electronically signed by Keenan Edward MD 12/13/24 13:58:
More than 30 minutes spent in discharge including
Final examination of the patient
Summarizing hospital stay
Instructions for continuing care to all relevant caregivers
Preparation of discharge records, prescriptions, and referral forms
Original Note:
Today's Communication/Plan
-
Texted Radiologist for USS results
Discharge to SNF
Assessment / Plan
Assessment / Plan
74-year-old with weakness. He received code booster vaccine 1 PM yesterday afternoon had some chills and shivering. He also had a fall around 3:00 this morning when he slid out of bed and was unable to get up and called EMS. Had a fever 100.4 in
the ER. Symptoms symptoms of chills after receiving cortisone vaccine 2 years ago.
Patient denies any rashes, abdominal pain nausea vomiting or diarrhea, dysuria, headache.
He has had some increasing pain in the right hip area
EKG-sinus tachycardia nonspecific T wave abnormality
Chest x-ray reviewed by me-No Pneumonia
X-ray of the pelvis-no acute changes. Mild degenerative changes of both hips
Head CT-no acute abnormality
On examination awake alert and oriented
Cardiovascular system S1-S2 appreciated
Chest clear to auscultation
Abdomen soft and nontender
Lower extremity no rashes or redness, no edema
No neck stiffness
# SIRS
Fever and chills, Tachycardia
Possibly secondary to the vaccine effect
But workup for other infections
Chest x-ray- NO acute changes of pneumonia
Urine analysis--not indicative of infection
LFTs stable except for mildly elevated bilirubin
Blood cultures neg
No antibiotics
# Pain in the right hip area-no fracture. PT OT.
# Mild lactic acidosis-resolved
# Chronic bicytopenia-Heme eval appreciated. USS abd, MIRNA, lupus anticoagulant, fibrinogen, PT/INR/PTT, SPEP ordered
# DM-hemoglobin A1c 5.8- seems to be on Jardiance as outpatient, continue with Farxiga in house, Accu-Cheks and sliding scale coverage
# Hyperlipidemia-continue statin, Zetia
# Hypertension-continue doxazosin, ramipril
# Suspected cognitive dysfunction per evaluation by Occupational Therapy. Formal evaluation as outpatient. Discussed with daughter at bedside
# DVT prophylaxis-Lovenox
# CODE STATUS-patient wants to be DNR.
Discussed with at bedside
Discussed with case management
D/W PT at bed side
Anticipated Discharge: Today
Subjective/Interval History
-
Date of Service: December 13, 2024
Objective Data
-
Labs:
Laboratory Results
12/13/24
07:15
WBC 2.8 L
Hgb 14.1
Hct 42.1
Plt Count 71 L
PT 14.4
INR 1.09
APTT 31.1
Vital Signs:
Vital Signs
Temp Pulse Resp BP Pulse Ox
98.3 F 60 18 150/75 96
12/13/24 08:20 12/13/24 08:20 12/12/24 23:05 12/13/24 08:20 12/13/24 08:20
I&O
12/12/24 12/13/24 12/14/24
06:59 06:59 06:59
Intake Total 420 / 420 900 / 900
Output Total 1550 / 1550 600 / 600
Balance -1130 / -1130 300 / 300
--- NOTE | 2024-12-13 13:56 | W.DS.TRANS ---
DC Summary - [employer]
-
Discharge Instructions:
Discharge Diagnosis/Procedures Fever secondary to COVID-vaccine
Leukopenia and thrombocytopenia
Diabetes
Hyperlipidemia
Hypertension
Cognitive dysfunction
Mild fatty infiltration of liver
Abdominal aortic ectasia with distal aortic
aneurysm up to 2.8 cm.
Diet Diabetic, Carb Controlled
Activity As tolerated
Driving Restrictions No driving
Other Services PT,OT
Instructions:
Stand-Alone Forms:
Changes to Home Medications: Yes
Discharge Medications:
DC Medications w/original date entered in [employer]
Refresh Tears 1 drp BOTH EYES BID Eye Condition 12/10/24
aspirin 81 mg tablet 81 mg PO DAILY Blood Clot Prevention/Tx 12/10/24
atorvastatin 20 mg tablet 20 mg PO HS High Cholesterol 12/10/24
doxazosin 1 mg tablet 1 mg PO BID Urinary Issue 12/10/24
empagliflozin 25 mg tablet (Jardiance) 25 mg PO DAILY Diabetes 12/10/24
ezetimibe 10 mg tablet 10 mg PO DAILY High Cholesterol 12/10/24
multivitamin 1 tab PO DAILY Supplement 12/10/24
omega 5-xxu-kry-fish oil 60 mg-90 mg-500 mg capsule (Fish Oil) 1 cap PO DAILY Supplement 12/10/24
ramipril 10 mg capsule 10 mg PO BID Blood Pressure 12/10/24
cyanocobalamin (vitamin B-12) 500 mcg tablet (Vitamin B-12) 1,000 mcg (2 x 500 mcg) PO DAILY Supplement #0 tabs 12/13/24
Home Medication Changes
new
cyanocobalamin (vitamin B-12) 500 mcg tablet (Vitamin B-12) 1,000 mcg (2 x 500 mcg) PO DAILY Supplement #0 tabs 12/13/24
Pending Results: Yes
Additional Pending Results:
MIRNA, lupus anticoagulant, SPEP
[2024-12-13 15:43] VITALS: BP 130/72
--- NOTE | 2024-12-13 15:50 | VNURNOTE ---
Chart reviewed. Plan is [facility] if not accepted by [facility]/SNF. Liaison met with patient and spouse at bedside. They are aware of plan and agreeable to [facility] if unable to go to SNF. Explained HH services: short term, intermittent,
skilled. Reviewed homebound status. Reviewed that HH would see patient 2-3 x/week for teaching and management of health conditions. Reviewed that HH will call within 1-2 days after DC. Spouse and pt verbalized agreement. Referral placed in
[facility].
[2024-12-14 00:40] LABS: ANA, IgG Reflex to HEp-2 None Detected (None Detected)
--- NOTE | 2024-12-14 12:42 | CM ---
CM received call post dc from [facility]- SOC end of upcoming week
VMs left for both pt cell and spouse cell to make aware and offer new provider search with sooner SOC
Requested call back
[2024-12-15 10:18] LABS: Albumin 3.29 g/dL (3.75-5.01); SPEP IFE Reflex Not Done; Total Protein-Electrophoresis 5.5 g/dL (6.3-8.2)
--- NOTE | 2024-12-15 10:28 | CM ---
Conference call with pt and spouse- they would like stay with [facility] and in agreement with later SOC
Update to weekend [facility] liaison
They noted he is doing quite well and may not need service if he continues to progress over the next few days
== END 2024-12-13 17:05 | DRG 864 ==
LOC: 4 WEST ACU 09:44
PROVIDERS: Emergency Medicine; Nurse Practitioner Acute Care; Physician Assistant; Student in an Organized Health Care Education/Training Program; ADMITTING PHYSICIAN Hospitalist; CONSULT PHYSICIAN Internal Medicine Hematology & Oncology; EMERGENCY PHYSICIAN Emergency Medicine; FAMILY PHYSICIAN Family Medicine
DX: R50.83 Postvaccination fever (principal); R65.10 Systemic inflammatory response syndrome (SIRS) of non-infectious origin without acute organ dysfunction; E87.20 Acidosis, unspecified; J98.11 Atelectasis; D69.6 Thrombocytopenia, unspecified; D72.819 Decreased white blood cell count, unspecified; T50.B95A Adverse effect of other viral vaccines, initial encounter; E11.65 Type 2 diabetes mellitus with hyperglycemia; E78.00 Pure hypercholesterolemia, unspecified; I10 Essential (primary) hypertension; Z66 Do not resuscitate; K76.0 Fatty (change of) liver, not elsewhere classified; I71.9 Aortic aneurysm of unspecified site, without rupture; M16.0 Bilateral primary osteoarthritis of hip; G89.29 Other chronic pain; I25.10 Atherosclerotic heart disease of native coronary artery without angina pectoris; S40.812A Abrasion of left upper arm, initial encounter; W06.XXXA Fall from bed, initial encounter; Z79.82 Long term (current) use of aspirin; Z79.84 Long term (current) use of oral hypoglycemic drugs; Z79.899 Other long term (current) drug therapy; Z11.52 Encounter for screening for COVID-19
CPT/HCPCS: 70450; 71046; 72170; 73552; 76700; 80053; 81003; 81015; 82607; 82746; 82962; 83036; 83605; 84155; 84165; 84484; 85025; 85027; 85384; 85610; 85613; 85730; 86038; 87040; 87502; 87811; 93005; 96361; 96365; 96366; 96367; 97116; 97129; 97163; 97167; 97530; 97535; 99285

== ENCOUNTER → 2025-01-09 07:58 | Outpatient (REF) | payer OTHER, SELFPAY ==
[2025-01-09 10:39] LABS: Blood Urea Nitrogen 18 mg/dl (9-20); Calcium 9.7 mg/dl (8.4-10.2); Carbon Dioxide 23 mmol/L (22-30); Chloride 106 mmol/L (98-107); Glucose 151 mg/dl (70-99); Potassium 4.2 mmol/L (3.5-5.1); Sodium 139 mmol/L (135-145); eGFR > 60.00
[2025-01-09 11:10] LABS: Hematocrit 47.8 % (39.0-52.0); Hemoglobin 16.1 g/dL (13.0-18.0); Mean Corp Hgb Conc. 33.7 g/dL (33.0-37.0); Mean Corpuscular Volume 84.6 fL (80.0-94.0); Red Cell Dist. Width 15.5 % (11.5-14.5)
[2025-01-09 11:11] LABS: Nucleated Red Blood Cells % 0 % (-)
[2025-01-09 11:54] LABS: Glycohemoglobin (HgbA1c) 5.6 % (4.0-5.9)
[2025-01-09 12:09] LABS: Platelet Count 88 10^3/uL (130-400)
== END ==
LOC: HWLAB 07:58
PROVIDERS: ATTENDING PHYSICIAN Family Medicine
DX: D69.6 Thrombocytopenia, unspecified (principal); E11.69 Type 2 diabetes mellitus with other specified complication
CPT/HCPCS: 36415; 80048; 83036; 85025

== ENCOUNTER → 2025-02-04 08:59 | Outpatient (REF) | payer OTHER, SELFPAY | LOC: RAD 08:59 | PROVIDERS: ATTENDING PHYSICIAN Internal Medicine Hematology & Oncology; FAMILY PHYSICIAN Family Medicine | DX: D69.59 Other secondary thrombocytopenia (principal); D72.819 Decreased white blood cell count, unspecified | CPT/HCPCS: 76700 ==